=== PATIENT | female | born 1995 | race Hispanic/Latino ===

== ENCOUNTER → 2017-03-04 | Day surgery (SDC) | payer OTHER ==
[~2017-03-04] VITALS: Ht 162.6 cm; Wt 102.1 kg
[~2017-03-04] MED LIST: TESTOSTERONE
--- NOTE | 2017-03-06 11:10 | Operative Report ---
Operative/Inv Procedure Report Surgery Date: 03/04/17 Name of Procedure: Excision of subcutaneous lipoma 6 cm, right anterolateral chest wall Pre-Operative Diagnosis: Chest lipoma right anterolateral chest wall Post-Operative Diagnosis: Same Estimated Blood Loss: scant Surgeon/Final Touch Up Painter: JAYJAY SHANNON,CARLOS Jackson Anesthesia: local monitored anesthesi Operative/Procedure Note Note: After induction of anesthesia patient positioned supine with the right arm slightly abducted this lipoma was were used to have been axillary tail accessory breast tissue overlying the serratus anterolaterally at and below the right axilla. Because of the redundancy we aimed an elliptical incision following the skin lines centered over this mass we macarena first then infiltrated local anesthetic then made the incision with a 15 blade the skin was very thin here we started to develop a plane between the lobulated lipoma and the surrounding subcutaneous fat immediately and followed it around and in the deeper planes it was still subcutaneous it was not subfascial and I don't feel it entered beneath the clavipectoral fascia into the true axilla despite its appearance before incision, when it was completely excised it measured 6 cm we checked area. Hemostasis used cautery and then closed in layers using 3-0 Vicryl sutures interrupted 4 the subcutaneous layer a few more subdermally and then a running subcuticular for the skin itself followed by Mastisol Steri-Strips Telfa and Tegaderm EBL minimal lap and sponge counts correct wound expectancy clean IV fluids crystalloid complications none patient tolerated the procedure well was extubated and returned to recovery room in satisfactory condition.
== END ==
LOC: STS 02:56
DX: D17.1 Benign lipomatous neoplasm of skin and subcutaneous tissue of trunk (principal); E66.9 Obesity, unspecified
CPT/HCPCS: 81025; J0690; J2250